=== PATIENT | male | born 1995 | race Caucasian/White ===

== ENCOUNTER 2025-08-16 23:18 | Emergency (ER) | payer BC, OTHER ==
[2025-08-16] MEDS ORDERED: Cyclobenzaprine 10 MG TAB ONE (23:58)
== END 2025-08-17 00:11 | disposition home or self-care (01) ==
LOC: NAV ERS 23:18
DX: M54.2 Cervicalgia (principal); R51.9 Headache, unspecified; R05.9 Cough, unspecified
CPT/HCPCS: 99283